=== PATIENT | female | born 1960 | race Caucasian/White ===

== ENCOUNTER → 2021-05-09 | Outpatient (CLI) | payer SELFPAY ==
[~2021-05-09] MED LIST: ALBUTEROL SULFAT3 M3 IH; NORCO 325 MG-51 TAB PO; PREDNISONE20 MG PO; PROAIR DIGIHAL90 MCG IH; RT ALBUTER2.5 MG/0.5 IH
== END ==
LOC: COL.RAD 13:00
DX: H53.9 Unspecified visual disturbance (principal)
CPT/HCPCS: A9585

== ENCOUNTER 2021-08-11 16:02 | Emergency (ER) | payer SELFPAY ==
[~2021-08-11] VITALS: Ht 157.5 cm; Wt 78.6 kg
[2021-08-11 16:06] VITALS: TEMP 97.6
[2021-08-11 16:28] LABS: BASO # 0.1 (0.0-0.2); BASO % 0.8 % (0.0-2.0); EOS # 0.1 (0.0-0.7); EOS % 0.4 % (0-4.0); GRAN % 67.7 % (42.2-75.2); HEMATOCRIT 47.7 % (37.0-47.0); LYMPH # 3.2 (1.2-3.4); LYMPH % 24.3 % (20.0-51.0); MEAN CELL VOLUME 85 fl (80.0-100.0); MEAN CORPUSCULAR HEMOGLOBIN 29 pg (27.0-31.0); MEAN CORPUSCULAR HGB CONC 34 g/dl (33.0-37.0); MEAN PLATELET VOLUME 11.2 fl (7.4-10.4); MONO # 0.8 (0.1-0.6); MONO % 6.4 % (1.7-9.3); PLATELET COUNT 281 K/mm3 (130-400); RED BLOOD COUNT 5.62 M/mm3 (4.10-5.30); REDCELL DISTRIBUTION WIDTH-CV 12.4 % (11.5-14.5)
[2021-08-11 16:30] LABS: ALKALINE PHOSPHATASE 85 U/L (50-136); ANION GAP 19 mmol/L (7-16); AST,SGOT 47 U/L (15-37); BILIRUBIN,TOTAL 0.6 mg/dL (0.0-1.0); BLOOD UREA NITROGEN 11 mg/dL (7-17); CALCIUM 9.7 mg/dL (8.4-10.2); CARBON DIOXIDE 16 mmol/L (22-30); CHLORIDE 109 mmol/L (98-107); CREATININE, serum 0.74 (0.52-1.25); GLUCOSE 155 mg/dL (74-106); POTASSIUM 3.1 mmol/L (3.4-5.0); SODIUM 145 mmol/L (137-145); TOTAL PROTEIN 8.5 gm/dL (6.4-8.2)
[2021-08-11 16:38] LABS: ALANINE AMINOTRANSFERASE 65 U/L (4-34)
[2021-08-11 16:42] LABS: TROPONIN-I < 0.012 ng/mL (0.000-0.035)
[2021-08-11] MEDS ORDERED: ALBUTEROL SULFAT3 M3 IH (16:59)
[2021-08-11] MEDS ORDERED: NORCO 325 MG-51 TAB PO (19:34)
[2021-08-11] MEDS ORDERED: PROAIR DIGIHAL90 MCG IH (19:34)
[2021-08-11] MEDS ORDERED: PREDNISONE20 MG PO (19:34)
[2021-08-11] MEDS ORDERED: RT ALBUTER2.5 MG/0.5 IH (19:34)
[2021-08-11 20:27] VITALS: BP 119/68; PULSE 98
== END 2021-08-11 20:27 | disposition home or self-care (01) ==
LOC: COL.ER 16:02
PROVIDERS: Personal Emergency Response Attendant
DX: J44.9 Chronic obstructive pulmonary disease, unspecified (principal); R09.02 Hypoxemia; Z87.891 Personal history of nicotine dependence; Z79.899 Other long term (current) drug therapy
CPT/HCPCS: J2060; J2270; J2405; J2930

== ENCOUNTER 2022-12-18 15:25 | Outpatient (RCR) | payer MEDICAID ==
[~2022-12-18 15:25] MED LIST changes: +PULMICORT0.5 MG/2 M IH
== END 2022-12-22 | disposition home or self-care (01) ==
LOC: COL.CR
DX: Z48.812 Encounter for surgical aftercare following surgery on the circulatory system (principal); Z95.1 Presence of aortocoronary bypass graft; I25.2 Old myocardial infarction

== ENCOUNTER 2023-01-15 15:05 | Outpatient (RCR) | payer MEDICAID | END 2023-01-19 | disposition home or self-care (01) | LOC: COL.CR | DX: Z48.812 Encounter for surgical aftercare following surgery on the circulatory system (principal); Z95.1 Presence of aortocoronary bypass graft; I25.2 Old myocardial infarction ==

== ENCOUNTER 2023-01-18 09:39 | Outpatient (RCR) | payer MEDICAID | END 2023-01-19 | LOC: WSPT | DX: M25.511 Pain in right shoulder (principal) ==

== ENCOUNTER 2023-02-17 10:30 | Outpatient (RCR) | payer MEDICAID | END 2023-02-19 | disposition home or self-care (01) | LOC: WSPT | DX: M25.511 Pain in right shoulder (principal) ==

== ENCOUNTER → 2023-02-19 | Outpatient (RCR) | payer MEDICAID | END | disposition home or self-care (01) | LOC: COL.CR | DX: Z48.812 Encounter for surgical aftercare following surgery on the circulatory system (principal); Z95.1 Presence of aortocoronary bypass graft; I25.2 Old myocardial infarction ==

== ENCOUNTER 2023-03-05 15:53 | Outpatient (RCR) | payer MEDICAID | END 2023-03-05 16:00 | disposition home or self-care (01) | LOC: WSPT 15:53 | DX: M25.511 Pain in right shoulder (principal) ==

== ENCOUNTER 2023-03-19 15:43 | Outpatient (RCR) | payer MEDICAID | END 2023-03-21 | disposition home or self-care (01) | LOC: COL.CR | DX: Z48.812 Encounter for surgical aftercare following surgery on the circulatory system (principal); Z95.1 Presence of aortocoronary bypass graft; I25.2 Old myocardial infarction ==

== ENCOUNTER → 2024-02-01 | Outpatient (CLI) | payer MEDICAID | LOC: MC.RAD 12:48 | DX: N64.89 Other specified disorders of breast (principal) ==